=== PATIENT | female | born 1940 | race Caucasian/White ===

== ENCOUNTER 2017-11-16 13:02 | Inpatient (IN) | payer MEDICARE, OTHER ==
[~2017-11-16] VITALS: Ht 182.9 cm; Wt 95.0 kg
[~2017-11-16 13:02] MED LIST: HCTZ 25MG TAB25 MG; NEURONTIN300 MG/CAP PO; NORVASC 10MG10 MG; PAXIL 30MG30 MG PO; RELAFEN 50500 MG/TAB; TENORMIN 5050 MG/TAB PO; ULTRAM 50MG TAB50 MG; ULTRAM ER100 MG; VALIUM 2MG T2 MG/TAB PO
[2017-11-16 15:27] VITALS: BP 100/53; PULSE 68; TEMP 98.2
[2017-11-16] MEDS ORDERED: ELIQUIS 2.5 PO (17:03)
[2017-11-16] MEDS ORDERED: CLEOCIN HC150 MG/CAP PO (17:05)
[2017-11-16] MEDS ORDERED: TIAZAC240 MG PO (17:07)
[2017-11-16] MEDS ORDERED: FLORANEX GRANULE5 MG PO (17:08)
[2017-11-16] MEDS ORDERED: TEARS-ARTIFICIA15 ML OP (17:09)
[2017-11-16] MEDS ORDERED: CALCIUM 600MG+D1 TAB PO (17:17)
[2017-11-16] MEDS ORDERED: MULTI VITAMINS1 TAB PO (17:18)
[2017-11-16] MEDS ORDERED: NORCO 325 MG-51 TAB PO (17:18)
[2017-11-16] MEDS ORDERED: NATURAL E400 IU PO (17:19)
[2017-11-16 17:26] VITALS: BP 107/50; PULSE 66; TEMP 97.9
[2017-11-16 17:58] LABS: MEAN CELL VOLUME 92 fl (80.0-100.0); MEAN CORPUSCULAR HGB CONC 32 g/dl (33.0-37.0); MEAN PLATELET VOLUME 9.6 fl (7.4-10.4); PLATELET COUNT 365 K/mm3 (130-400); RED BLOOD COUNT 3.22 M/mm3 (4.10-5.30); REDCELL DISTRIBUTION WIDTH-CV 14.9 % (11.5-14.5)
[2017-11-16 18:05] LABS: HEMATOCRIT 29.7 % (37.0-47.0); HEMOGLOBIN 9.4 g/dl (12.5-16.0); MEAN CORPUSCULAR HEMOGLOBIN 29 pg (27.0-31.0)
[2017-11-16 18:07] LABS: ALBUMIN 2.4 gm/dL (3.5-5.0); BILIRUBIN,TOTAL 0.5 mg/dL (0.0-1.0); CALCIUM 7.9 mg/dL (8.4-10.2); CREATININE, serum 1.39 mg/dL (0.52-1.25); MAGNESIUM 1.9 mg/dL (1.6-2.3); POTASSIUM 4.1 mmol/L (3.4-5.0); TOTAL PROTEIN 5.3 gm/dL (6.4-8.2)
[2017-11-16 18:13] LABS: ANISOCYTOSIS 2+; EOSINOPHIL 2 % (0-4); HYPOCHROMIA 1+; LYMPHOCYTE 10 % (20.0-51.0); MICROCYTOSIS 1+; NEUTROPHILS 80 % (42.0-75.2); PLATELET ESTIMATE NORMAL (NORMAL)
[2017-11-16 20:46] VITALS: BP 106/53; PULSE 89; TEMP 98
[2017-11-16 21:47] LABS: HEMATOCRIT 25.8 % (37.0-47.0); HEMOGLOBIN 8.4 g/dl (12.5-16.0)
[2017-11-16 23:57] VITALS: BP 95/58; PULSE 67; TEMP 98
[2017-11-17] VITALS (20 sets, daily range): BP systolic 76–109; BP diastolic 32–62; PULSE 40–89; TEMP 97.3–98.5
[2017-11-17 01:13] LABS: HEMATOCRIT 20.4 % (37.0-47.0)
[2017-11-17 01:14] LABS: HEMOGLOBIN 6.7 g/dl (12.5-16.0)
[2017-11-17 07:04] LABS: HEMATOCRIT 22.5 % (37.0-47.0); HEMOGLOBIN 7.3 g/dl (12.5-16.0)
[2017-11-17 07:28] LABS: CREATININE, serum 1.38 mg/dL (0.52-1.25); MAGNESIUM 1.8 mg/dL (1.6-2.3); POTASSIUM 4.1 mmol/L (3.4-5.0)
[2017-11-17 13:11] LABS: HEMATOCRIT 20.5 % (37.0-47.0); HEMOGLOBIN 6.7 g/dl (12.5-16.0)
[2017-11-18] VITALS (42 sets, daily range): BP systolic 90–116; BP diastolic 42–65; PULSE 30–169; TEMP 98.2–99.3; O2SAT 71–99
[2017-11-18 02:21] LABS: HEMATOCRIT 26.6 % (37.0-47.0); HEMOGLOBIN 9.1 g/dl (12.5-16.0)
[2017-11-18 06:56] LABS: HEMOGLOBIN 8.9 g/dl (12.5-16.0)
[2017-11-18 07:11] LABS: CALCIUM 7.1 mg/dL (8.4-10.2); CREATININE, serum 1.4 mg/dL (0.52-1.25); MAGNESIUM 1.8 mg/dL (1.6-2.3); PHOSPHOROUS 3.5 mg/dL (2.5-4.5); POTASSIUM 3.9 mmol/L (3.4-5.0)
[2017-11-18 17:00] LABS: HEMATOCRIT 26.8 % (37.0-47.0); HEMOGLOBIN 9.1 g/dl (12.5-16.0)
[2017-11-18 21:17] LABS: HEMATOCRIT 24.8 % (37.0-47.0); HEMOGLOBIN 8.4 g/dl (12.5-16.0)
[2017-11-18 22:24] LABS: BASO # 0.1 (0.0-0.2); BASO % 0.3 % (0.0-2.0); EOS # 0.1 (0.0-0.7); EOS % 0.7 % (0-4.0); GRAN # 11.7 (1.4-6.5); GRAN % 70.6 % (42.2-75.2); LYMPH % 17.9 % (20.0-51.0); MEAN CORPUSCULAR HGB CONC 34 g/dl (33.0-37.0); MEAN PLATELET VOLUME 9.8 fl (7.4-10.4); MONO # 1.6 (0.1-0.6); MONO % 9.5 % (1.7-9.3); PLATELET COUNT 300 K/mm3 (130-400); RED BLOOD COUNT 2.84 M/mm3 (4.10-5.30); REDCELL DISTRIBUTION WIDTH-CV 15.7 % (11.5-14.5)
[2017-11-18 22:28] LABS: HEMATOCRIT 24.8 % (37.0-47.0); HEMOGLOBIN 8.4 g/dl (12.5-16.0); MEAN CELL VOLUME 87 fl (80.0-100.0); MEAN CORPUSCULAR HEMOGLOBIN 30 pg (27.0-31.0)
[2017-11-18 22:32] LABS: CALCIUM 7.3 mg/dL (8.4-10.2); CREATININE, serum 1.35 mg/dL (0.52-1.25); MAGNESIUM 1.7 mg/dL (1.6-2.3); PHOSPHOROUS 3.4 mg/dL (2.5-4.5); POTASSIUM 3.9 mmol/L (3.4-5.0)
[2017-11-19] VITALS (898 sets, daily range): BP systolic 100–114; BP diastolic 39–78; PULSE 108–150; TEMP 97.8–98.6; O2SAT 36–100
[2017-11-19 06:31] LABS: MEAN CELL VOLUME 88 fl (80.0-100.0); MEAN CORPUSCULAR HGB CONC 34 g/dl (33.0-37.0); MEAN PLATELET VOLUME 9.9 fl (7.4-10.4); PLATELET COUNT 302 K/mm3 (130-400); RED BLOOD COUNT 2.93 M/mm3 (4.10-5.30); REDCELL DISTRIBUTION WIDTH-CV 15.4 % (11.5-14.5)
[2017-11-19 06:35] LABS: HEMATOCRIT 25.7 % (37.0-47.0); HEMOGLOBIN 8.6 g/dl (12.5-16.0); MEAN CORPUSCULAR HEMOGLOBIN 29 pg (27.0-31.0)
[2017-11-19 06:43] LABS: ANION GAP 8 mmol/L (7-16); BLOOD UREA NITROGEN 39 mg/dL (7-17); CALCIUM 7.4 mg/dL (8.4-10.2); CARBON DIOXIDE 26 mmol/L (22-30); CHLORIDE 104 mmol/L (98-107); CREATININE, serum 1.25 mg/dL (0.52-1.25); GLUCOSE 100 mg/dL (74-106); MAGNESIUM 2.1 mg/dL (1.6-2.3); PHOSPHOROUS 3.6 mg/dL (2.5-4.5); POTASSIUM 3.7 mmol/L (3.4-5.0); SODIUM 139 mmol/L (137-145)
[2017-11-19 06:53] LABS: TROPONIN-I < 0.012 ng/mL (0.000-0.034)
[2017-11-19 07:46] LABS: BAND 4 % (0-10); BASOPHIL 1 % (0-2); EOSINOPHIL 3 % (0-4); LYMPHOCYTE 9 % (20.0-51.0); METAMYELOCYTE 1 % (0-0); NEUTROPHILS 82 % (42.0-75.2); PLATELET ESTIMATE NORMAL (NORMAL)
[2017-11-19 21:54] LABS: HEMATOCRIT 23.9 % (37.0-47.0); HEMOGLOBIN 7.9 g/dl (12.5-16.0)
[2017-11-20] VITALS (856 sets, daily range): BP systolic 96–177; BP diastolic 42–84; PULSE 72–98; TEMP 98–99.6; O2SAT 67–100
[2017-11-20 05:40] LABS: MEAN CELL VOLUME 89 fl (80.0-100.0); MEAN CORPUSCULAR HGB CONC 34 g/dl (33.0-37.0); MEAN PLATELET VOLUME 9.5 fl (7.4-10.4); PLATELET COUNT 288 K/mm3 (130-400); RED BLOOD COUNT 2.53 M/mm3 (4.10-5.30)
[2017-11-20 05:50] LABS: CALCIUM 7.2 mg/dL (8.4-10.2); CREATININE, serum 1.28 mg/dL (0.52-1.25); POTASSIUM 3.6 mmol/L (3.4-5.0)
[2017-11-20 06:11] LABS: HEMATOCRIT 22.5 % (37.0-47.0); HEMOGLOBIN 7.6 g/dl (12.5-16.0); MEAN CORPUSCULAR HEMOGLOBIN 30 pg (27.0-31.0)
[2017-11-20 07:11] LABS: BAND 3 % (0-10); LYMPHOCYTE 11 % (20.0-51.0); NEUTROPHILS 84 % (42.0-75.2)
[2017-11-20 07:12] LABS: POLYCHROMASIA 1+
[2017-11-20 07:14] LABS: ANISOCYTOSIS 1+; PLATELET ESTIMATE NORMAL (NORMAL)
[2017-11-20 11:51] LABS: RETIC # 0.12 M/mm3 (0.02-0.16); RETIC % 4.6 % (0.5-3.52)
[2017-11-20 20:10] LABS: HEMATOCRIT 27.9 % (37.0-47.0); HEMOGLOBIN 9.4 g/dl (12.5-16.0)
[2017-11-21] VITALS (752 sets, daily range): BP systolic 97–135; BP diastolic 33–73; PULSE 70–92; TEMP 97.8–100.4; O2SAT 80–100
[2017-11-21 05:37] LABS: MEAN CELL VOLUME 90 fl (80.0-100.0); MEAN CORPUSCULAR HGB CONC 33 g/dl (33.0-37.0); MEAN PLATELET VOLUME 9.6 fl (7.4-10.4); PLATELET COUNT 277 K/mm3 (130-400); RED BLOOD COUNT 2.81 M/mm3 (4.10-5.30); REDCELL DISTRIBUTION WIDTH-CV 15.6 % (11.5-14.5)
[2017-11-21 05:50] LABS: HEMATOCRIT 25.2 % (37.0-47.0); HEMOGLOBIN 8.4 g/dl (12.5-16.0); MEAN CORPUSCULAR HEMOGLOBIN 30 pg (27.0-31.0)
[2017-11-21 05:52] LABS: CALCIUM 7.4 mg/dL (8.4-10.2); CREATININE, serum 1.34 mg/dL (0.52-1.25); POTASSIUM 3.2 mmol/L (3.4-5.0)
[2017-11-21 06:16] LABS: BAND 1 % (0-10); EOSINOPHIL 2 % (0-4); HYPOCHROMIA 1+; LYMPHOCYTE 9 % (20.0-51.0); MYELOCYTE 1 % (0-0); NEUTROPHILS 85 % (42.0-75.2)
[2017-11-21 06:18] LABS: ANISOCYTOSIS 1+
[2017-11-21 06:23] LABS: PLATELET ESTIMATE NORMAL (NORMAL)
[2017-11-22 04:40] VITALS: BP 121/37; PULSE 82; TEMP 99
[2017-11-22 07:06] LABS: CALCIUM 7.2 mg/dL (8.4-10.2); CREATININE, serum 1.37 mg/dL (0.52-1.25); POTASSIUM 3.5 mmol/L (3.4-5.0)
[2017-11-22 07:45] VITALS: BP 116/32; PULSE 81; TEMP 98.6
[2017-11-22 08:01] LABS: BASO # 0.1 (0.0-0.2); BASO % 0.5 % (0.0-2.0); EOS # 0.5 (0.0-0.7); EOS % 3.6 % (0-4.0); GRAN # 10.7 (1.4-6.5); GRAN % 72.9 % (42.2-75.2); LYMPH # 1.9 (1.2-3.4); LYMPH % 12.7 % (20.0-51.0); MEAN CELL VOLUME 92 fl (80.0-100.0); MEAN CORPUSCULAR HGB CONC 33 g/dl (33.0-37.0); MEAN PLATELET VOLUME 10.2 fl (7.4-10.4); MONO # 1.4 (0.1-0.6); MONO % 9.8 % (1.7-9.3); PLATELET COUNT 315 K/mm3 (130-400); RED BLOOD COUNT 2.68 M/mm3 (4.10-5.30)
[2017-11-22 08:03] LABS: HEMATOCRIT 24.6 % (37.0-47.0); MEAN CORPUSCULAR HEMOGLOBIN 30 pg (27.0-31.0)
[2017-11-22 11:14] VITALS: BP 113/48; PULSE 72; TEMP 98.9
[2017-11-22 13:58] LABS: MUCOUS Present /lpf; PH 5 (5-8); URINE APPEARANCE Hazy; URINE BACTERIA Rare /hpf; URINE BILIRUBIN Negative (NEGATIVE); URINE BLOOD Negative (NEGATIVE); URINE COLOR Yellow; URINE GLUCOSE Negative (NEGATIVE); URINE KETONE Negative (NEGATIVE); URINE LEUKOCYTE ESTERASE 2+ (NEGATIVE); URINE NITRATE Negative (NEGATIVE); URINE PROTEIN(semi-quant) Negative (NEGATIVE); URINE UROBILINOGEN Negative (NEGATIVE)
[2017-11-22 14:02] LABS: COLLECTION METHOD RANDOM VOIDED
[2017-11-22 15:16] VITALS: BP 127/39; PULSE 93; TEMP 98.5
[2017-11-22] MEDS ORDERED: FERROUS SU325 MG/TAB PO (15:32)
[2017-11-22] MEDS ORDERED: CORDARONE200 MG/TAB PO (15:34)
[2017-11-22] MEDS ORDERED: LANOXIN 0.25M0.25 MG PO (15:34)
[2017-11-22] MEDS ORDERED: TENORMIN 2525 MG/TAB PO ×2 (15:35→20:10)
[2017-11-22] MEDS ORDERED: VITAMINC500CH PO (15:37)
[2017-11-22] MEDS ORDERED: CARAFATE 1GM1 G PO (15:37)
[2017-11-22] MEDS ORDERED: PROTONIX 40MG T40 MG PO (15:37)
[2017-11-22 17:07] LABS: HEMATOCRIT 26.8 % (37.0-47.0); HEMOGLOBIN 8.7 g/dl (12.5-16.0)
[2017-11-22] MEDS ORDERED: IPRATROPIUM BROM3 M1 IH ×2 (20:03→20:05)
[2017-11-22] MEDS ORDERED: KLONOPIN 1MG1 MG PO (20:11)
[2017-11-22] MEDS ORDERED: ANTACID500 M1 PO (20:14)
[2017-11-22] MEDS ORDERED: TYLENOL 325MG325 MG PO (20:15)
[2017-11-22] MEDS ORDERED: MAALOX ADVANCE148 ML PO (20:17)
== END 2017-11-22 18:36 | DRG 380 ==
LOC: ICU 14:13 → SURG 16:56 → ICU 11-18 23:15 → MEDICAL 11-21 17:07
PROVIDERS: Family Medicine; Internal Medicine; Internal Medicine Interventional Cardiology; Nurse Practitioner Family; Physician Assistant; Surgery
PROC: 0DB38ZX Excision of Lower Esophagus, Via Natural or Artificial Opening Endoscopic, Diagnostic (ICD-10-PCS; principal; 2017-11-18 11:00)
PROC: 0DBH8ZX Excision of Cecum, Via Natural or Artificial Opening Endoscopic, Diagnostic (ICD-10-PCS; 2017-11-18 11:00)
PROC: 5A2204Z Restoration of Cardiac Rhythm, Single (ICD-10-PCS; 2017-11-21)
DX: K22.11 Ulcer of esophagus with bleeding (principal); J15.9 Unspecified bacterial pneumonia; N17.9 Acute kidney failure, unspecified; E46 Unspecified protein-calorie malnutrition; D62 Acute posthemorrhagic anemia; N30.00 Acute cystitis without hematuria; D12.0 Benign neoplasm of cecum; I12.9 Hypertensive chronic kidney disease with stage 1 through stage 4 chronic kidney disease, or unspecified chronic kidney disease; N18.3 Chronic kidney disease, stage 3 (moderate); F17.210 Nicotine dependence, cigarettes, uncomplicated; I48.91 Unspecified atrial fibrillation; G89.29 Other chronic pain; Z79.01 Long term (current) use of anticoagulants; D64.9 Anemia, unspecified
CPT/HCPCS: 99223-AI; 99232-AI; 99233-AI; 99239; C1751; C1894; C9113; G9654; J0282; J1160; J1644; J1940; J2704; J3475; J7030; J7050; J7060; P9016

== ENCOUNTER 2017-11-16 13:02 | Inpatient (IN) | payer MEDICARE, OTHER ==
[2017-11-16] MEDS ORDERED: ELIQUIS 2.5 PO (17:03)
[2017-11-16] MEDS ORDERED: CLEOCIN HC150 MG/CAP PO (17:05)
[2017-11-16] MEDS ORDERED: TIAZAC240 MG PO (17:07)
[2017-11-16] MEDS ORDERED: FLORANEX GRANULE5 MG PO (17:08)
[2017-11-16] MEDS ORDERED: TEARS-ARTIFICIA15 ML OP (17:09)
[2017-11-16] MEDS ORDERED: CALCIUM 600MG+D1 TAB PO (17:17)
[2017-11-16] MEDS ORDERED: NORCO 325 MG-51 TAB PO (17:18)
[2017-11-16] MEDS ORDERED: MULTI VITAMINS1 TAB PO (17:18)
[2017-11-16] MEDS ORDERED: NATURAL E400 IU PO (17:19)
== END 2017-11-16 16:56 | disposition short-term general hospital (02) | DRG 379 ==
DX: K92.0 Hematemesis (principal); R53.81 Other malaise; F17.210 Nicotine dependence, cigarettes, uncomplicated; I48.91 Unspecified atrial fibrillation; N18.9 Chronic kidney disease, unspecified; Z79.02 Long term (current) use of antithrombotics/antiplatelets
CPT/HCPCS: 99222-AI

== ENCOUNTER 2017-11-22 17:30 | Inpatient (IN) | payer MEDICARE, OTHER ==
[~2017-11-22] VITALS: Ht 182.9 cm; Wt 91.5 kg
[~2017-11-22 17:30] MED LIST changes: +CALCIUM 600MG+D1 TAB PO; +CARAFATE 1GM1 G PO; +CLEOCIN HC150 MG/CAP PO; +CORDARONE200 MG/TAB PO; +ELIQUIS 2.5 PO; +FERROUS SU325 MG/TAB PO; +FLORANEX GRANULE5 MG PO; +LANOXIN 0.25M0.25 MG PO; +MULTI VITAMINS1 TAB PO; +NATURAL E400 IU PO; +NORCO 325 MG-51 TAB PO; +PROTONIX 40MG T40 MG PO; +TEARS-ARTIFICIA15 ML OP; +TENORMIN 2525 MG/TAB PO; +TIAZAC240 MG PO; +VITAMINC500CH PO
[2017-11-22 19:36] VITALS: BP 131/47; PULSE 82; TEMP 98.2
[2017-11-22] MEDS ORDERED: IPRATROPIUM BROM3 M1 IH ×2 (20:03→20:05)
[2017-11-22] MEDS ORDERED: TENORMIN 2525 MG/TAB PO (20:10)
[2017-11-22] MEDS ORDERED: KLONOPIN 1MG1 MG PO (20:11)
[2017-11-22] MEDS ORDERED: ANTACID500 M1 PO (20:14)
[2017-11-22] MEDS ORDERED: TYLENOL 325MG325 MG PO (20:15)
[2017-11-22] MEDS ORDERED: MAALOX ADVANCE148 ML PO (20:17)
[2017-11-23 04:26] VITALS: BP 92/62; PULSE 68; TEMP 98.9
[2017-11-23 05:38] VITALS: BP 92/62; PULSE 71; TEMP 98.6
[2017-11-23 15:45] VITALS: BP 126/37; PULSE 73; TEMP 98.6
[2017-11-23 20:30] VITALS: BP 119/45; PULSE 88; TEMP 98.8
[2017-11-24 06:00] VITALS: BP 134/68; PULSE 81; TEMP 98.1
[2017-11-24 16:54] VITALS: BP 136/39; PULSE 68; TEMP 98.1
[2017-11-25 05:37] VITALS: BP 116/60; PULSE 80; TEMP 98.7
[2017-11-25 15:09] LABS: BASO # 0.1 (0.0-0.2); BASO % 0.8 % (0.0-2.0); EOS # 0.2 (0.0-0.7); GRAN % 68.5 % (42.2-75.2); LYMPH # 1.8 (1.2-3.4); LYMPH % 17.3 % (20.0-51.0); MEAN CELL VOLUME 92 fl (80.0-100.0); MEAN CORPUSCULAR HGB CONC 32 g/dl (33.0-37.0); MEAN PLATELET VOLUME 9.1 fl (7.4-10.4); MONO # 1.1 (0.1-0.6); MONO % 11.1 % (1.7-9.3); PLATELET COUNT 381 K/mm3 (130-400); RED BLOOD COUNT 2.89 M/mm3 (4.10-5.30); REDCELL DISTRIBUTION WIDTH-CV 15.6 % (11.5-14.5)
[2017-11-25 15:10] LABS: HEMATOCRIT 26.6 % (37.0-47.0); HEMOGLOBIN 8.5 g/dl (12.5-16.0); MEAN CORPUSCULAR HEMOGLOBIN 29 pg (27.0-31.0)
[2017-11-25 15:18] LABS: CALCIUM 7.6 mg/dL (8.4-10.2); CREATININE, serum 1.26 mg/dL (0.52-1.25); POTASSIUM 3.9 mmol/L (3.4-5.0)
[2017-11-25 16:25] VITALS: BP 142/39; PULSE 71; TEMP 98.8
[2017-11-25 16:39] LABS: COLLECTION METHOD CLEAN CATCH
[2017-11-25 17:04] LABS: BUDDING YEAST Present /hpf; MUCOUS Present /lpf; PH 5 (5-8); SQUAMOUS EPITHELIAL 0-2 /hpf; URINE APPEARANCE Clear; URINE BACTERIA Rare /hpf; URINE BILIRUBIN Negative (NEGATIVE); URINE BLOOD Negative (NEGATIVE); URINE COLOR Yellow; URINE GLUCOSE Negative (NEGATIVE); URINE KETONE Negative (NEGATIVE); URINE LEUKOCYTE ESTERASE Negative (NEGATIVE); URINE NITRATE Negative (NEGATIVE); URINE PROTEIN(semi-quant) Negative (NEGATIVE); URINE RBC 0-2 /hpf; URINE UROBILINOGEN Negative (NEGATIVE)
[2017-11-25 20:49] VITALS: BP 121/32; BP 121/62
[2017-11-26 04:16] VITALS: BP 129/32; PULSE 80; TEMP 98.8
[2017-11-26 08:19] VITALS: BP 138/52
[2017-11-26 15:20] VITALS: BP 133/39; PULSE 70; TEMP 97.8
[2017-11-26 20:30] VITALS: BP 148/56; PULSE 67
[2017-11-27 04:38] VITALS: BP 120/36; PULSE 81; TEMP 98.9
[2017-11-27 05:41] VITALS: BP 122/38
[2017-11-27 09:30] VITALS: BP 148/53
[2017-11-27 16:00] VITALS: BP 153/39; PULSE 77; TEMP 98.6
[2017-11-28 05:59] VITALS: BP 138/58; TEMP 98.8
[2017-11-28 07:17] LABS: BASO # 0.1 (0.0-0.2); EOS # 0.2 (0.0-0.7); EOS % 2.7 % (0-4.0); GRAN # 5.5 (1.4-6.5); GRAN % 63.4 % (42.2-75.2); LYMPH # 1.8 (1.2-3.4); LYMPH % 20.6 % (20.0-51.0); MEAN CELL VOLUME 92 fl (80.0-100.0); MEAN CORPUSCULAR HGB CONC 32 g/dl (33.0-37.0); MEAN PLATELET VOLUME 9.5 fl (7.4-10.4); MONO % 11.7 % (1.7-9.3); PLATELET COUNT 415 K/mm3 (130-400); RED BLOOD COUNT 2.93 M/mm3 (4.10-5.30); REDCELL DISTRIBUTION WIDTH-CV 15.8 % (11.5-14.5)
[2017-11-28 07:21] LABS: HEMOGLOBIN 8.6 g/dl (12.5-16.0)
[2017-11-28 07:22] LABS: HEMATOCRIT 26.8 % (37.0-47.0); MEAN CORPUSCULAR HEMOGLOBIN 29 pg (27.0-31.0)
[2017-11-28 07:35] LABS: CALCIUM 7.5 mg/dL (8.4-10.2); CREATININE, serum 1.22 mg/dL (0.52-1.25); MAGNESIUM 1.3 mg/dL (1.6-2.3); POTASSIUM 3.3 mmol/L (3.4-5.0)
[2017-11-28 15:30] VITALS: BP 118/54; PULSE 75; TEMP 98.5
[2017-11-29 06:49] VITALS: BP 123/38; PULSE 86; TEMP 98.8
[2017-11-29 09:37] VITALS: BP 136/38
[2017-11-29 15:47] VITALS: BP 126/34; PULSE 81; TEMP 99.8
[2017-11-29 18:21] VITALS: TEMP 98.2
[2017-11-29 20:45] VITALS: BP 118/40
[2017-11-30 06:00] VITALS: BP 126/43; PULSE 82; TEMP 98.8
[2017-11-30 07:28] LABS: CALCIUM 7.4 mg/dL (8.4-10.2); CREATININE, serum 1.31 mg/dL (0.52-1.25); MAGNESIUM 1.9 mg/dL (1.6-2.3); POTASSIUM 4.3 mmol/L (3.4-5.0)
[2017-11-30 11:35] VITALS: BP 162/54; PULSE 79; TEMP 98
[2017-11-30 11:35] LABS: HEMATOCRIT 30.3 % (37.0-47.0); HEMOGLOBIN 9.6 g/dl (12.5-16.0); MEAN CELL VOLUME 92 fl (80.0-100.0); MEAN CORPUSCULAR HEMOGLOBIN 29 pg (27.0-31.0); MEAN CORPUSCULAR HGB CONC 32 g/dl (33.0-37.0); MEAN PLATELET VOLUME 9.5 fl (7.4-10.4); PLATELET COUNT 412 K/mm3 (130-400); RED BLOOD COUNT 3.31 M/mm3 (4.10-5.30); REDCELL DISTRIBUTION WIDTH-CV 15.9 % (11.5-14.5)
[2017-11-30 12:03] LABS: BAND 4 % (0-10); EOSINOPHIL 1 % (0-4); LYMPHOCYTE 27 % (20.0-51.0); NEUTROPHILS 62 % (42.0-75.2); PLATELET ESTIMATE NORMAL (NORMAL)
[2017-11-30 12:04] LABS: ANISOCYTOSIS 2+; HYPOCHROMIA 1+; MICROCYTOSIS 1+
[2017-11-30 14:28] LABS: COLLECTION METHOD CATHETER
[2017-11-30 14:35] LABS: PH 5 (5-8); SQUAMOUS EPITHELIAL None Seen /hpf; URINE APPEARANCE Clear; URINE BACTERIA None Seen /hpf; URINE BILIRUBIN Negative (NEGATIVE); URINE BLOOD Negative (NEGATIVE); URINE COLOR Yellow; URINE GLUCOSE Negative (NEGATIVE); URINE KETONE Negative (NEGATIVE); URINE LEUKOCYTE ESTERASE Negative (NEGATIVE); URINE NITRATE Negative (NEGATIVE); URINE PROTEIN(semi-quant) Negative (NEGATIVE); URINE RBC 0-2 /hpf; URINE UROBILINOGEN Negative (NEGATIVE)
[2017-11-30 17:30] VITALS: BP 151/51; PULSE 83; TEMP 98.2
== END 2017-11-30 18:19 | DRG 947 ==
PROVIDERS: Internal Medicine
DX: R53.81 Other malaise (principal); A41.9 Sepsis, unspecified organism; R65.21 Severe sepsis with septic shock; J18.9 Pneumonia, unspecified organism; N17.9 Acute kidney failure, unspecified; N30.01 Acute cystitis with hematuria; K56.51 Intestinal adhesions [bands], with partial obstruction; I48.91 Unspecified atrial fibrillation; N18.9 Chronic kidney disease, unspecified; Z87.891 Personal history of nicotine dependence; E87.6 Hypokalemia; E83.42 Hypomagnesemia
CPT/HCPCS: 99223-AI; 99232-AI; 99233-AI; J1644; J3475; J7030; J7050; Q9967